=== PATIENT | male | born 1990 | race Asian ===

== ENCOUNTER 2019-07-26 05:49 | Emergency (ER) | payer BC, OTHER ==
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
[2019-07-26 09:08] VITALS: BP 116/79
== END 2019-07-26 08:53 | disposition home or self-care (01) ==
LOC: ED 05:49
DX: F19.90 Other psychoactive substance use, unspecified, uncomplicated (principal); F17.200 Nicotine dependence, unspecified, uncomplicated
CPT/HCPCS: 99282

== ENCOUNTER 2019-08-26 11:06 | Emergency (ER) | payer SELFPAY ==
--- OUTSIDE RECORDS SUMMARY | 2019-08-26 11:12 | XMS REPORT | Continuity of Care Document ---
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 No Information Available Social History Type Date Description Comments Sex Unknown Tobacco Use Start: Unknown Heavy tobacco smoker (more than 10 cigarettes/day) Smoking Status Reviewed: 08/01/19 Heavy tobacco smoker (more than 10 cigarettes/day) Allergies, Adverse Reactions, Alerts Description No Known Drug Allergies Medications Active Medications SIG Qnty Indications Ordering Provider Date Tylenol 8 Hour take every 6 hours Unknown 650mg as needed for Tablets ER pain, headache or fever Allergy Relief 1 tablet by mouth Unknown 25mg as needed Tablets Immunizations Description No Information Available Vital Signs Date Vital Result Comment 08/01/2019 1:31pm Height 65 inches 5'5" Weight 165.38 lb Heart Rate 70 /min BP Systolic 120 mmHg BP Diastolic 72 mmHg Body Temperature 97.3 F O2 % BldC Oximetry 98 % BMI (Body Mass Index) 27.5 kg/m2 Results Description No Information Available Procedures Description No Information Available Medical Devices Description No Information Available Encounters Description No Information Available Assessments Date Code Description Provider 08/01/2019 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)Z72.0 Tobacco useFollow up:as uvwiylD03.90 Other psychoactive substance use, unspecified, uncomplicated Functional Status Description No Information Available Mental Status Description No Information Available Referrals Description No Information Available
[2019-08-26 11:23] VITALS: BP 150/76
[2019-08-26] MEDS ORDERED: Tetan/Diph/Pertus SYR(Tdap)* 0.5 ML SYR(BOOSTRIX) use SYR contains LATEX IM ONE (12:05)
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
== END 2019-08-26 12:17 | disposition home or self-care (01) ==
LOC: UCEAST 11:06
DX: S01.512A Laceration without foreign body of oral cavity, initial encounter (principal); S00.83XA Contusion of other part of head, initial encounter; S06.0X0A Concussion without loss of consciousness, initial encounter; F17.290 Nicotine dependence, other tobacco product, uncomplicated; Y04.0XXA Assault by unarmed brawl or fight, initial encounter; Y92.9 Unspecified place or not applicable
CPT/HCPCS: 90715; 96372; 99212; G0463